=== PATIENT | female | born 1980 | race Caucasian/White ===

== ENCOUNTER → 2023-08-23 15:55 | Outpatient (CLI) | payer OTHER, SELFPAY ==
[2023-08-23 17:11] LABS: Add Manual Diff / Slide Review NO; Basophils Absolute Auto 0 /uL (0-100); Basophils Percent Auto 0.8 % (0-2); Eosinophils Absolute Auto 100 /uL (0-450); Eosinophils Percent Auto 2.2 % (2-4); Hematocrit 40.4 % (36-46); Hemoglobin 13.6 g/dL (12.0-16.0); Lymphocytes Absolute Auto 1600 /uL (1100-4500); Lymphocytes Percent Auto 27.5 % (25-40); Mean Corpuscular HGB Conc 33.7 % (30-36); Mean Corpuscular Hemoglobin 28.9 PG (26-34); Mean Corpuscular Volume 85.7 fL (80-100); Monocytes Absolute Auto 600 /uL (0-900); Monocytes Percent Auto 10.3 % (3-14); Neutrophils Absolute Auto 3300 /uL (1500-7000); Neutrophils Percent Auto 59.2 % (50-75); Platelet Count 296 X10^3/uL (150-400); Red Blood Cell Count 4.72 X10^6/uL (4.0-5.2); Red Cell Distribution Width 13.9 % (11.6-14.8); White Blood Cell Count 5.7 X10^3/uL (4.5-11.0)
[2023-08-23 17:24] LABS: Alanine Aminotransferase 25 IU/L (<35); Albumin 4.2 g/dL (3.5-5.0); Albumin Globulin Ratio 1.3 (1.0-2.8); Alkaline Phosphatase 43 U/L (38-126); Aspartate Aminotransferase 27 IU/L (14-36); BUN Creatinine Ratio 17.1 (6-22); Bilirubin Total 0.5 mg/dL (0.2-1.3); Blood Urea Nitrogen 13 mg/dL (7-17); Calcium 8.7 mg/dL (8.4-10.2); Carbon Dioxide 28 mmol/L (22-32); Chloride 101 mmol/L (98-107); Estimated Glomerular Filt Rate > 60 mL/min (>60); Globulin 3.2 g/dL (1.7-4.1); Glucose 106 mg/dL (70-100); HEMOLYSIS < 15 (0-50); Potassium 3.6 mmol/L (3.4-5.1); Sodium 138 mmol/L (137-145); Total Protein 7.4 g/dL (6.3-8.2)
[2023-08-23 20:15] LABS: HEMOLYSIS < 15 (0-50); Iron 106 ug/dL (37-170)
[2023-08-23 20:20] LABS: Hemoglobin A1C% w Est Avg Glu 5.1 % (4.0-6.0)
[2023-08-23 20:39] LABS: Percent Iron Saturation 26 % (15-50); Total Iron Binding Capacity 408 ug/dL (265-497); Transferrin 344 mg/dL (206-381)
[2023-08-23 20:45] LABS: TSH w/ Reflex to FT4 1.64 uIU/mL (0.47-4.68)
== END ==
LOC: LAB 15:59
PROVIDERS: Referring Provider Family Medicine; Visit Provider Family Medicine
DX: R51.9 Headache, unspecified (principal); G89.29 Other chronic pain; R42 Dizziness and giddiness; R11.2 Nausea with vomiting, unspecified
CPT/HCPCS: 36415; 80053; 83036; 83540; 83550; 84443; 85025